=== PATIENT | female | born 1990 ===

== ENCOUNTER 2018-02-27 07:09 | Emergency (ER) | payer BC ==
[2018-02-27 07:28] VITALS: TEMP 97.4; BMI 23.4
--- NOTE | 2018-02-27 08:33 | ED PDOC ---
HPI: Back Time Seen by Provider: 02/27/18 07:59 Chief Complaint (Nursing): Back Pain Chief Complaint (Provider): Flank Pain History Per: Patient History/Exam Limitations: no limitations Onset/Duration Of Symptoms: Days (this morning ) Current Symptoms Are (Timing): Still Present Quality Of Discomfort: "Pain" Additional Complaint(s): 27 year old female with a history of kidney stones presents to the ED with right flank pain associated with nausea and vomiting since this morning. Patient denies fever, dysuria and other medical complaints. PMD: none provided Past Medical History Reviewed: Historical Data, Nursing Documentation, Vital Signs Vital Signs: Last Vital Signs Temp 97.4 F L 02/27/18 07:27 Pulse 72 02/27/18 07:27 Resp 18 02/27/18 07:27 BP 111/73 02/27/18 07:27 Pulse Ox 98 02/27/18 07:27 - Medical History PMH: Asthma, Kidney Stones - Surgical History Surgical History: No Surg Hx - Family History Family History: States: Unknown Family Hx - Home Medications Home Medications: Ambulatory Orders Medication Instructions Recorded Naproxen [Naprosyn] 500 mg PO Q12H #20 tab 02/27/18 - Allergies Allergies/Adverse Reactions: Allergies Allergy/AdvReac Type Severity Reaction Status Date / Time No Known Allergies Allergy Verified 02/27/18 07:59 Review of Systems ROS Statement: Except As Marked, All Systems Reviewed And Found Negative Constitutional: Negative for: Fever Genitourinary Female: Negative for: Dysuria, Frequency Musculoskeletal: Positive for: Other (right flank pain) Physical Exam - Reviewed Nursing Documentation Reviewed: Yes Vital Signs Reviewed: Yes - Physical Exam Appears: Positive for: Non-toxic, No Acute Distress Head Exam: Positive for: ATRAUMATIC, NORMAL INSPECTION, NORMOCEPHALIC Skin: Positive for: Normal Color, Warm, Dry Eye Exam: Positive for: EOMI, Normal appearance, PERRL Neck: Positive for: Normal, Painless ROM, Supple Cardiovascular/Chest: Positive for: Regular Rate, Rhythm. Negative for: Murmur Respiratory: Positive for: Normal Breath Sounds. Negative for: Respiratory Distress Gastrointestinal/Abdominal: Positive for: Normal Exam, Soft. Negative for: Tenderness, Mass Back: Positive for: Normal Inspection. Negative for: L CVA Tenderness, R CVA Tenderness, Other (palpable masses) Extremity: Positive for: Normal ROM (x 4). Negative for: Deformity Neurologic/Psych: Positive for: Alert, Oriented (x 3). Negative for: Motor/Sensory Deficits - ECG O2 Sat by Pulse Oximetry: 98 (RA) Pulse Ox Interpretation: Normal Medical Decision Making Medical Decision Makin:08 Initial Plan: --Abd & pelvis CT --urine preg --Urine dip Scribe Attestation: Documented by Alyce Mac acting as a scribe for Geronimo Allred MD Provider Scribe Attestation: All medical record entries made by the Scribe were at my direction and personally dictated by me. I have reviewed the chart and agree that the record accurately reflects my personal performance of the history, physical exam, medical decision making, and the department course for this patient. I have also personally directed, reviewed, and agree with the discharge instructions and disposition. Disposition - Clinical Impression Clinical Impression: Ovarian cyst - Patient ED Disposition Is Patient to be Admitted: No Counseled Patient/Family Regarding: Studies Performed, Diagnosis, Need For Followup, Rx Given - Disposition [facility] Disposition: Routine/Home Disposition Time: 11:35 Condition: FAIR Prescriptions: Naproxen [Naprosyn] 500 mg PO Q12H #20 tab Instructions: Ovarian Cysts Forms: [employer] ([place])
--- NOTE | 2018-02-27 10:19 | CT ---
Date of service: 02/27/2018 PROCEDURE: CT Abdomen and Pelvis without intravenous contrast HISTORY: r/o kidney stone COMPARISON: None. TECHNIQUE: Technique. Contrast dose: No contrast was administered. Radiation dose: Total exam DLP = 292 mGy-cm. This CT exam was performed using one or more of the following dose reduction techniques: Automated exposure control, adjustment of the mA and/or kV according to patient size, and/or use of iterative reconstruction technique. FINDINGS: LOWER THORAX: Unremarkable.. Distal esophagus is unremarkable. Visualized stomach and duodenum are within normal limits. LIVER: Unremarkable. No gross lesion or ductal dilatation. GALLBLADDER AND BILE DUCTS: Unremarkable. PANCREAS: Unremarkable. No gross lesion or ductal dilatation. SPLEEN: Unremarkable. ADRENALS: Unremarkable. No mass. KIDNEYS AND URETERS: There is evidence of a 2-mm nonobstructing mid to lower pole left renal calculus. No hydronephrosis is seen. No perinephric changes are identified. Ureters are normal in outline. No ureteral calculus or ureteral dilatation is seen. There is a nonspecific rounded area of mild increased density in the lower pole region of the left kidney. This measures 1.6 centimeters. This may reflect a small hemorrhagic cyst. VASCULATURE: Unremarkable. No aortic aneurysm. BOWEL: Unremarkable. No obstruction. No gross mural thickening. APPENDIX: Unremarkable. Normal appendix. PERITONEUM: There may be some very minimal fluid noted in the lower pelvis and cul-de-sac region. No free intraperitoneal air is identified. LYMPH NODES: Unremarkable. No enlarged lymph nodes. BLADDER: Unremarkable. REPRODUCTIVE: Uterus is retroverted in position but otherwise normal in size. No left adnexal masses are seen. A few possible small follicular cysts are noted in the right ovary. There may also be some minimal inflammatory change adjacent to the right ovary which may suggest recently ruptured follicular cyst. BONES: No acute fracture. OTHER FINDINGS: None. IMPRESSION: No CT scan evidence of obstructive uropathy. There is a 2-3 millimeter nonobstructing left renal calculus. Noted within the anterior aspect of the lower pole the left kidney is a rounded area of density which may suggest prominent calyx, although other etiology including hemorrhagic or proteinaceous cyst is not excluded. Nonemergent renal ultrasound showed be obtained at as an outpatient. Minimal amount of probable physiologic fluid in the cul-de-sac region. There is evidence of a few small probable follicular cyst in the right ovary and to a lesser degree on the left. Minimal inflammatory changes and a recently ruptured follicular cyst could account for these findings. Correlation with symptoms is suggested.
[2018-02-27 11:45] VITALS: BP 120/72; PULSE 88; RESP 19; O2SAT 99
== END 2018-02-27 11:52 | disposition home or self-care (01) ==
LOC: H.ER 07:09
DX: N83.209 Unspecified ovarian cyst, unspecified side (principal)